=== PATIENT | male | born 1960 | race Two or more races ===

== ENCOUNTER 2017-04-12 23:42 | Emergency (ER) | payer BC, OTHER ==
[~2017-04-12] VITALS: Ht 177.8 cm; Wt 81.6 kg
[2017-04-13] MEDS ORDERED: ONDANSETRON HCL/PF 4 MG/2 ML VIAL IM ONE
--- NOTE | 2017-04-13 | NUR ---
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 PT IS ALERT X 3, SEEMS VERY DROWSIE, PT GOWNED, PLACED ON COMPENSATION EXPERT. NO DISTRESS NOTED. SKIN WARM AND DRY, RESP EVEN AND UNLABORED. AWAITING ORDERS FROM PROVIDER
--- NOTE | 2017-04-13 00:38 | NUR ---
IS AT BED SIDE
[2017-04-13] MEDS ORDERED: ONDANSETRON HCL/PF 4 MG/2 ML VIAL ONE (01:00)
--- NOTE | 2017-04-13 01:07 | NUR ---
MEDICATED PT ORDERED
--- NOTE | 2017-04-13 02:25 | NUR ---
PATIENT IS RESTING IN ER BED, NO DISTRESS NOTED. RESP EVEN AND UNLABORED, SKIN WARM AND DRY. PATIENT IS AT BED SIDE. WILL CONTINUE TO MONITOR
[2017-04-13 03:51] VITALS: BP 109/66
--- NOTE | 2017-04-13 03:53 | NUR ---
Patient discharged to for transport home in stable condition. Written and verbal after care instructions given. Patient verbalizes understanding of instruction. Pt ambulatory with a steady gait. VSS, NAD noted on DC. Denies complaint on DC.
== END 2017-04-13 03:53 | disposition home or self-care (01) ==
LOC: ER 23:44 → EDBD 23:44 → ER 04-13 03:53
DX: R11.10 Vomiting, unspecified (principal); F12.10 Cannabis abuse, uncomplicated; R79.89 Other specified abnormal findings of blood chemistry
CPT/HCPCS: 82962; 96372; 99283; A4606; J2405; Z7610

== ENCOUNTER 2025-01-20 21:15 | Emergency (ER) | payer BC ==
[~2025-01-20] VITALS: Ht 185.4 cm; Wt 79.4 kg
[2025-01-20 21:33] VITALS: TEMP 98.7
[2025-01-20 21:59] LABS: PLATELET COUNT (AUTO) 246 K/uL (150-450); RED BLOOD CELL COUNT(AUTO) 5.69 MIL/uL (4.5-6.0); RED CELL DISTRIBUTION WIDTH 15.6 % (11.5-15.0); WHITE BLOOD COUNT (AUTO) 11.8 K/uL (4.3-11.0)
[2025-01-20 21:59] LABS: APPEARANCE,URINE CLEAR (CLEAR); BLOOD, URINE 2+ Ery/uL (NEGATIVE); LEUKOCYTE ESTERASE ,URINE NEGATIVE (NEGATIVE); NITRITE, URINE NEGATIVE (NEGATIVE); UGLUCOSE NEGATIVE (NEGATIVE)
[2025-01-20 22:06] LABS: CALCIUM, SERUM 9.3 mg/dL (8.5-10.1); CREATININE 1.4 mg/dL (0.6-1.3); SODIUM SERUM 139.0 mmol/L (136-145); UREA NITROGEN, BLOOD 16.0 mg/dL (7-18)
[2025-01-20 22:07] LABS: ADD URINE CULTURE NO; SQUAMOUS EPITHELIAL CELL,UR None Seen /HPF (None Seen)
[2025-01-20] MEDS ORDERED: MORPHINE SULFATE INJ 4 MG/ML DISP.SYRIN ONE (22:09)
[2025-01-20] MEDS ORDERED: ONDANSETRON HCL/PF 4 MG/2 ML VIAL ONE (22:09)
[2025-01-20 22:12] LABS: ASPARTATE AMINOTRANSFERASE 132.0 U/L (15-37); TOTAL PROTEIN, SERUM 6.9 g/dL (6.4-8.2)
[2025-01-20 22:15] LABS: LYMPHOCYTES % (MANUAL) 3 % (16-48); MONOCYTES % (MANUAL) 5 % (0-11.0); NEUTROPHILS % (MANUAL) 92 (42-76); PLATELET ESTIMATE ADEQUATE
[2025-01-20] MEDS: ONDANSETRON HCL/PF 4 MG/2 ML VIAL IVP ONE (22:20)
[2025-01-20] MEDS: MORPHINE SULFATE INJ 2 MG/ML DISP.SYRIN IV ONE (22:21)
[2025-01-20] MEDS: KETOROLAC TROMETHAMINE 15 MG/ML VIAL IV ONE (23:15)
[2025-01-20] MEDS: IV NS 0.9% 1,000 ML BAG IV ONE (23:15)
[2025-01-20] MEDS ORDERED: TAMS-12 PO (23:19)
[2025-01-20] MEDS ORDERED: ONDA4TAB5 PO (23:19)
[2025-01-20] MEDS ORDERED: KETO10TA2 PO (23:19)
[2025-01-20 23:53] VITALS: BP 128/82; O2SAT 97
== END 2025-01-20 23:53 | disposition home or self-care (01) ==
LOC: ER 21:31
DX: N20.0 Calculus of kidney (principal); Z87.19 Personal history of other diseases of the digestive system
CPT/HCPCS: 99285; 74176; 96374; 96375; 96361; 85027; 80048; 83690; 80076; 85007; 81001; 36415; J1885; J2270; J2405; J7030